=== PATIENT | male | born 1985 | race Caucasian/White ===

== ENCOUNTER 2016-11-25 23:07 | Emergency (ER) | payer SELFPAY ==
[~2016-11-25] VITALS: Ht 177.8 cm; Wt 70.5 kg
[~2016-11-25 23:07] MED LIST: ACET-2264 PO; CEPH-507 PO; HYDR-3702 PO; IBP200T PO
--- OUTSIDE RECORDS SUMMARY | 2016-11-25 23:12 | XMS REPORT | Continuity of Care Document ---
Author Author [facility] Organization [facility] Address Unknown Phone Unavailable Care Team Providers Care Television Cabinet Finisher Name Role Phone MARK, MICHELLE Chavez MD PCP [phone] Insurance Providers Payer Name Policy Number Subscriber Name Relationship [facility] [id number] Akil Ugarte 17 Self / Same As Patient Chief Complaint and Reason for Visit Chief Complaint Respiratory Complaint Reason for Visit [id number] Chemical exposure Problems Medical Problems Problem Onset Date Status Puncture wound - injury 03/11/2013 Active Myalgia Unknown Active Chemical exposure Unknown Active Medications Medication Dose Route Sig Days/Qty Instructions Order Date Discontinued Date Status Cephalexin 500 Mg ORAL THREE TIMES A DAY 7 Days 03/11/13 11/05/14 Discontinued Acetaminophen 2-3 Tab ORAL Q2-4 HR PRN PRN PAIN 11/05/14 Active Ibuprofen (Motrin) 4 Tab ORAL Q2-4 HR PRN PRN PAIN 11/05/14 Active Social History No social history. Hospital Discharge Instructions No hospital discharge instructions. Plan of Care Discharge Date 11/05/14 8:24pm Disposition 01 HOME OR SELF-CARE Condition at Discharge Stable Instructions/Education Provided Chemical Pneumonitis (ED) Prescriptions See Medications Section Additional Instructions/Education All of your tests have come back normal at this point. Continue to monitor and return to the Emergency Department for any worsening or changing of your signs/symptoms. Use Tylenol and Ibuprofen for aches/pains. Some of your test results may not be complete prior to your leaving the Emergency Department. The Emergency Department is not authorized to give test results over the phone. Please contact the doctor's office listed in this packet of information for your final results. Follow up with your primary care physician or return to the Emergency Department for worsening or worrisome symptoms. * Emergency Department phone number: [phone], x [phone]* MEDICAL RECORD If you need copies of your X-rays, call [phone]. If you need copies of your medical record, including lab results, a signed authorization for release of records will be required. A telephone call for release of Health Information is not allowed. BILLING Billing can sometimes be confusing and frustrating. To help avoid confusion in the future, please take a moment to acquaint yourself with the billing parties for services. SERVICE BILLING [employer] Emergency Room Services [facility] Physician Services [facility] X-[facility] [place] [facility] Patients will receive bills for services from the appropriate provider. If you have any questions about your [facility] bill, our staff will be happy to assist you. Please call [phone], and ask for the billing department. THANK YOU for choosing [facility] as your emergency care provider! Functional Status No functional status results. Allergies, Adverse Reactions, Alerts Allergen Type Severity Reaction Status Last Updated No Known Drug Allergies Active 03/11/13 Immunizations No immunization records. Vital Signs Acute Vital Signs Vital Response Date/Time Temperature (Fahrenheit) 99.0 Pulse 65 bpm Respirations 22 Height 5 ft 10 in Weight 153 lb Body Mass Index 21.0 kg/m^2 Results Test Source Date Result Interp. Ref. Range Comments Albumin/Globulin Ratio November 05, 2014 7:51pm 2.000 H 1.1-1.8 Albumin November 05, 2014 7:51pm 4.2 g/dL N 3.4-5.0 Total Protein November 05, 2014 7:51pm 6.3 g/dL L 6.4-8.5 Total Creatine Kinase November 05, 2014 7:51pm 134 U/L N 55-170 Alanine Aminotransferase (ALT/SGPT) November 05, 2014 7:51pm 28 U/L L 30- 65 Aspartate Amino Transf (AST/SGOT) November 05, 2014 7:51pm 19 U/L N 15-37 Alkaline Phosphatase November 05, 2014 7:51pm 51 U/L N 38-126 Total Bilirubin November 05, 2014 7:51pm 0.3 mg/dL N 0.1-1.0 Calcium/Ionized Calcium Ratio November 05, 2014 7:51pm 4.3 mg/dL N 3.8-4.6 Calcium Level November 05, 2014 7:51pm 9.2 mg/dL N 8.8-10.8 Calculated Osmolality November 05, 2014 7:51pm 272 mosm/L L 280-300 Glucose Level November 05, 2014 7:51pm 103 mg/dL N 70-110 Estimated GFR (Non- November 05, 2014 7:51pm 103.0 Estimat Glomerular Filtration Rate November 05, 2014 7:51pm 124.7 BUN/Creatinine Ratio November 05, 2014 7:51pm 20 N 10-20 Creatinine November 05, 2014 7:51pm 0.87 mg/dL N 0.8-1.5 Blood Urea Nitrogen November 05, 2014 7:51pm 17 mg/dL N 7-18 Anion Gap November 05, 2014 7:51pm 7.9 MEQ/L N 3-15 Carbon Dioxide Level November 05, 2014 7:51pm 27 mmol/L N 22-29 Chloride Level November 05, 2014 7:51pm 109 mmol/L H 98-108 Potassium Level November 05, 2014 7:51pm 3.8 mmol/L N 3.5-5.1 Sodium Level November 05, 2014 7:51pm 140 mmol/L N 135-150 Basophils # (Auto) November 05, 2014 7:51pm 0.1 10^3uL Eosinophils # (Auto) November 05, 2014 7:51pm 0.1 10^3uL Monocytes # (Auto) November 05, 2014 7:51pm 0.7 X10^3 Lymphocytes # (Auto) November 05, 2014 7:51pm 2.3 X10^3 Neutrophils # (Auto) November 05, 2014 7:51pm 7.2 X10^3 Basophils (%) (Auto) November 05, 2014 7:51pm 1 % N 0-2 Eosinophils (%) (Auto) November 05, 2014 7:51pm 1 % N 0-4 Monocytes (%) (Auto) November 05, 2014 7:51pm 7 % N 3-11 Lymphocytes (%) (Auto) November 05, 2014 7:51pm 22 % N 20-46 Neutrophils (%) (Auto) November 05, 2014 7:51pm 69 % H 51-67 Mean Platelet Volume November 05, 2014 7:51pm 10.9 FL H 6.0-9.5 Platelet Count November 05, 2014 7:51pm 235 10^3uL N 150-450 Red Cell Distribution Width November 05, 2014 7:51pm 12.8 % N 11.8-15.6 Mean Corpuscular Hemoglobin Concent November 05, 2014 7:51pm 33.8 g/dL N 31.0-37.0 Mean Corpuscular Hemoglobin November 05, 2014 7:51pm 30.5 PG N 26.0-34.0 Mean Corpuscular Volume November 05, 2014 7:51pm 91 FL N 80-100 Hematocrit November 05, 2014 7:51pm 40.00 % N 39.00-50.00 Hemoglobin November 05, 2014 7:51pm 13.5 g/dL N 13.5-17.0 Red Blood Count November 05, 2014 7:51pm 4.42 10^6uL L 4.50-5.50 White Blood Count November 05, 2014 7:51pm 10.45 10^3uL N 4.0-11.0 Urine Collection Type November 05, 2014 7:50pm Clean catch Urine collection method Clean Catch Urine Bilirubin November 05, 2014 7:50pm Negative Negative Urine collection method Clean Catch Urine Clarity November 05, 2014 7:50pm Clear Urine collection method Clean Catch Urine Color November 05, 2014 7:50pm Yellow Urine collection method Clean Catch Urine Glucose (UA) November 05, 2014 7:50pm Negative Negative Urine collection method Clean Catch Urine Ketones November 05, 2014 7:50pm Negative Negative Urine collection method Clean Catch Urine Leukocyte Esterase November 05, 2014 7:50pm Negative Negative Urine collection method Clean Catch Urine Nitrite November 05, 2014 7:50pm Negative Negative Urine collection method Clean Catch Urine Protein November 05, 2014 7:50pm Negative Negative Urine collection method Clean Catch Urine Specific [place] November 05, 2014 7:50pm 1.025 1.005-1.030 Urine collection method Clean Catch Urine Urobilinogen November 05, 2014 7:50pm 1.0 mg/dL 0.2-1.0 Urine collection method Clean Catch Urine pH November 05, 2014 7:50pm 6.5 5.0 - 8.0 Urine collection method Clean Catch Urine RBC (Auto) November 05, 2014 7:50pm Negative Negative Urine collection method Clean Catch Procedures No known history of procedures. Encounters Encounter Location Date/Time Registered Emergency Room [facility] 11/05/14 6:23pm Recent Diagnosis
--- OUTSIDE RECORDS SUMMARY | 2016-11-25 23:18 | XMS REPORT | Continuity of Care Document ---
Author Author [facility] Organization [facility] Address Unknown Phone Unavailable Care Team Providers Care Revising Clerk Name Role Phone MARK, MICHELLE Chavez MD PCP [phone] Insurance Providers Payer Name Policy Number Subscriber Name Relationship [facility] [id number] Akil Ugarte 17 Self / Same As Patient Chief Complaint and Reason for Visit Chief Complaint Respiratory Complaint Reason for Visit [id number] Chemical exposure Problems Medical Problems Problem Onset [...] worrisome symptoms. * Emergency Department phone number: [phone], x [phone]* MEDICAL RECORD If you need copies of your X-rays, call [phone]. If you need copies of [...] the billing parties for services. SERVICE BILLING [employer] Emergency Room Services [facility] Physician Services [facility] X-rays [place] [facility] Patients will receive bills for services from the appropriate provider. If you have any questions about your [facility] bill, our staff will be happy to assist you. Please call [phone], and ask for the billing department. THANK YOU for choosing [facility] as your emergency care provider! Functional Status [...] Urine collection method Clean Catch Urine Specific [place] November 05, 2014 7:50pm 1.025 1.005-1.030 Urine [...] Encounters Encounter Location Date/Time Registered Emergency Room [facility] 11/05/14 6:23pm Recent Diagnosis
--- NOTE | 2016-11-25 23:25 | NUR ---
Marylou morales at bedside with pt.
[2016-11-26 00:10] LABS: ALBUMIN 4.8 g/dL (3.4-5.0); ANION GAP 18.8 MEQ/L (3-15); CALCULATED IONIZED CALCIUM 4.1 mg/dL (3.8-4.6); TOTAL PROTEIN 7.6 g/dL (6.4-8.5)
[2016-11-26 00:11] LABS: BASOPHILS % (AUTO) 1 % (0-2); EOSINOPHILS # (AUTO) 0.1 10^3uL; EOSINOPHILS % (AUTO) 1 % (0-4); LYMPHOCYTES # (AUTO) 1.9 X10^3; MEAN CORPUSCULAR HEMOGLOBIN 30.1 PG (26.0-34.0); MEAN CORPUSCULAR HGB CONC 33.8 g/dL (31.0-37.0); MEAN CORPUSCULAR VOLUME 89 FL (80-100); MEAN PLATELET VOLUME 11.1 FL (6.0-9.5); MONOCYTES # (AUTO) 1.3 X10^3; MONOCYTES % (AUTO) 10 % (3-11); NEUTROPHILS # (AUTO) 9.5 X10^3; NEUTROPHILS % (AUTO) 73 % (51-67); PLATELET COUNT 272 10^3uL (150-450); WHITE BLOOD COUNT 13.14 10^3uL (4.0-11.0)
[2016-11-26 00:14] LABS: BILIRUBIN,URINE Negative (Negative); CLARITY,URINE Clear; COLOR,URINE Yellow; GLUCOSE, URINE (UA) Negative (Negative); LEUKOCYTE ESTERASE ,URINE Negative (Negative); PH,URINE 5.5 (5.0 - 8.0); UROBILINOGEN,URINE 0.2 mg/dL (0.2-1.0)
[2016-11-26 00:34] LABS: AMPHETAMINE SCREEN, URINE Negative (Negative); METHAMPHETAMINE SCREEN URINE S NEGATIVE (NEGATIVE); URINE CENTRIFUGED VOLUME 12 mL
[2016-11-26 00:35] LABS: CANNABINOID SCREEN, URINE Negative (Negative); OPIATE SCREEN URINE Positive (Negative); PROPOXYPHENE STAT NEGATIVE (NEGATIVE)
[2016-11-26] MEDS ORDERED: ONDANSETRON 2 MG/ML (Z0FRAN) 2 ML VIAL IV ONE (00:50)
[2016-11-26] MEDS ORDERED: HYDROmorphone 1 MG/ML (DILAUDID) SYRINGE IV ONE ×3 (00:50→02:35)
--- NOTE | 2016-11-26 00:50 | NUR ---
Lab at bedside performing legal blood draw.
[2016-11-26] MEDS ORDERED: LIDOCAINE PF 1% (XYLOCAINE) 2 ML VIAL INJ ONE (01:35)
[2016-11-26 01:36] LABS: RBC,URINE 0-2 /HPF
--- NOTE | 2016-11-26 01:45 | NUR ---
Dr. Mccollum at bedside placing sutures in laceration to left lower lip.
[2016-11-26] MEDS ORDERED: CYCL10TA45 PO (02:57)
[2016-11-26] MEDS ORDERED: HYDR-3702 PO (02:57)
[2016-11-26] MEDS ORDERED: CEPH-331 PO (02:57)
[2016-11-26] MEDS ORDERED: CEPHALEXIN 500 MG (KEFLEX) CAPSULE PO ONE (03:05)
[2016-11-26 03:49] VITALS: BP 112/65
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
== END 2016-11-26 03:20 | disposition home or self-care (01) ==
LOC: ED 23:13
DX: S01.511A Laceration without foreign body of lip, initial encounter (principal); S32.010A Wedge compression fracture of first lumbar vertebra, initial encounter for closed fracture; S32.020A Wedge compression fracture of second lumbar vertebra, initial encounter for closed fracture; S40.212A Abrasion of left shoulder, initial encounter; S30.811A Abrasion of abdominal wall, initial encounter; S40.811A Abrasion of right upper arm, initial encounter; S00.212A Abrasion of left eyelid and periocular area, initial encounter; S00.12XA Contusion of left eyelid and periocular area, initial encounter; S00.33XA Contusion of nose, initial encounter; W22.11XA Striking against or struck by driver side automobile airbag, initial encounter; V47.5XXA Car driver injured in collision with fixed or stationary object in traffic accident, initial encounter; Y93.89 Activity, other specified; Y92.410 Unspecified street and highway as the place of occurrence of the external cause; F10.129 Alcohol abuse with intoxication, unspecified; F11.10 Opioid abuse, uncomplicated; Y90.6 Blood alcohol level of 120-199 mg/100 ml
CPT/HCPCS: 36415; 70450; 71010; 72125; 72131; 72170; 80053; 80307; 80320; 81003; 81015; 85025; 96374; 96375; 96376; 99283; J1170; J2001; J2405; 12011; 99284